=== PATIENT | female | born 1985 | race American Indian/Alaskan Native ===

== ENCOUNTER 2016-05-31 12:33 | Emergency (ER) | payer MEDICAID ==
[2016-05-31 12:51] VITALS: BP 128/90
--- NOTE | 2016-05-31 13:52 | Emergency Department Report ---
Chief Complaint: Abdominal Pain Stated Complaint: SHINGLES/PAIN Time Seen by Provider: 05/31/16 13:47 - HPI History of Present Illness: 30-year-old female with a past medical history of HIV. She reports that she has been dealing with a bout of zoster. She is now complaining of pain in her upper left side of her back. Her zoster outbreak was on her left lower back and side. Patient feels that there is some swelling up top. She denies any fever or chills denies any vaginal discharge vomiting nausea. She states Tylenol 3 without any resolution of pain - Exam Vital Signs: Vital Signs 05/31/16 12:48 Temperature 97.7 F Pulse Rate 80 Respiratory 16 Rate Blood Pressure 128/90 O2 Sat by Pulse 100 Oximetry Physical Exam: He is alert and oriented 3. Cardiovascular S1-S2 regular rate and rhythm respiratory clear to bilateral bacl left side tenderness to light and deep palpation MSE screening note: Focused history and physical exam performed. Due to findings the following was ordered: cbc, bmp will been seen in the main ER ED Disposition for MSE Condition: Stable Instructions: Abdominal Pain (ED)
[2016-05-31 14:22] LABS: Hematocrit 40.2 % (30.3-42.9); Hemoglobin 13.3 gm/dl (10.1-14.3); Mean Corpuscular HGB Conc 33 % (30-34); Mean Corpuscular Hemoglobin 31 pg (28-32); Mean Corpuscular Volume 94 fl (79-97); Platelet Count 324 K/mm3 (140-440); Red Blood Count 4.28 M/mm3 (3.65-5.03); Red Cell Distribution Width 13.3 % (13.2-15.2); White Blood Count 8.9 K/mm3 (4.5-11.0)
[2016-05-31 14:42] LABS: BUN/Creatinine Ratio 16.66; Blood Urea Nitrogen 10 mg/dL (7-17); Calcium 9.3 mg/dL (8.4-10.2); Carbon Dioxide 26 mmol/L (22-30); Glucose 87 mg/dL (65-100)
[2016-05-31 14:43] LABS: Chloride 98.2 mmol/L (98-107); Potassium 4.2 mmol/L (3.6-5.0); Sodium 137 mmol/L (137-145)
[2016-05-31 14:52] LABS: Anion Gap 17 mmol/L
[2016-05-31 16:15] LABS: Bilirubin,Urine NEG (Negative); Blood,Urine LG (Negative); Ketones,Urine NEG (Negative); Leukocyte Esterase,Urine SM (Negative); Mucus,Urine FEW /HPF; Nitrite,Urine NEG (Negative); Protein,Urine <15 mg/dL mg/dL (Negative); Urobilinogen,Urine < 2.0 mg/dL (<2.0)
--- NOTE | 2016-06-04 05:11 | ED Elopement Review ---
ED Pt Elopement review - Results review Lab results: Laboratory Tests 05/31/16 05/31/16 05/31/16 14:08 14:08 15:40 WBC 8.9 RBC 4.28 Hgb 13.3 Hct 40.2 MCV 94 MCH 31 MCHC 33 RDW 13.3 Plt Count 324 Sodium 137 Potassium 4.2 Chloride 98.2 Carbon Dioxide 26 Anion Gap 17 BUN 10 Creatinine 0.6 L Estimated GFR > 60 BUN/Creatinine Ratio 16.66 Glucose 87 Calcium 9.3 Urine Color Yellow Urine Turbidity Clear Urine pH 6.0 Ur Specific [place] 1.014 Urine Protein <15 mg/dl Urine Glucose (UA) Neg Urine Ketones Neg Urine Blood Lg Urine Nitrite Neg Urine Bilirubin Neg Urine Urobilinogen < 2.0 Ur Leukocyte Esterase Sm Urine WBC (Auto) 6.0 Urine RBC (Auto) 3.0 U Epithel Cells (Auto) 16.0 H Urine Mucus Few Urine HCG, Qual Negative - Call Back decision Pt Call Back Decision: No action required
== END 2016-05-31 23:18 | disposition left against medical advice (07) ==
LOC: ED 12:33
DX: M54.6 Pain in thoracic spine (principal); B02.9 Zoster without complications; Z53.21 Procedure and treatment not carried out due to patient leaving prior to being seen by health care provider
CPT/HCPCS: 36415; 80048; 81001; 81025; 85027

== ENCOUNTER 2019-03-29 09:40 | Inpatient (IN) | payer BC, MEDICAID ==
[2019-03-29] MEDS ORDERED: METOCLOPRAMIDE 10 MG/2 ML INJ IV NR (10:30)
[2019-03-29] MEDS ORDERED: ceFAZolin/Water 2 GM/20 ML 2 GM/20 ML SYRINGE IV NR (10:30)
[2019-03-29] MEDS ORDERED: FAMOTIDINE 20 MG/2 ML INJ IV NR (10:30)
[2019-03-29] MEDS ORDERED: BICITRA ORAL LIQD 30ML PO NR (10:30)
[2019-03-29] MEDS ORDERED: WATER IV ONE (11:00)
[2019-03-29] MEDS ORDERED: DEXTROSE 5% IV ONE (11:00)
[2019-03-29] MEDS ORDERED: LACTATED RINGERS 1,000 ML IV SCH (11:00)
[2019-03-29] MEDS ORDERED: OXYTOCIN 20 UNIT/1000ML DRIP 20 UNITS/1,000 ML BAG IV SCH ×2 (11:00→20:00)
[2019-03-29] MEDS ORDERED: ZIDOVUDINE IV ONE (11:00)
[2019-03-29 11:18] LABS: Basophils % (Auto) 0.8 % (0.0-1.8); Eosinophils % (Auto) 0.2 % (0.0-4.3); Hematocrit 30.4 % (30.3-42.9); Lymphocytes # (Auto) 2.5 K/mm3 (1.2-5.4); Lymphocytes % (Auto) 43.1 % (13.4-35.0); Mean Corpuscular HGB Conc 33 % (30-34); Mean Corpuscular Volume 87 fl (79-97); Monocytes # (Auto) 0.3 K/mm3 (0.0-0.8); Monocytes % (Auto) 4.9 % (0.0-7.3); Platelet Count 251 K/mm3 (140-440); Red Blood Count 3.51 M/mm3 (3.65-5.03); Red Cell Distribution Width 14.8 % (13.2-15.2)
--- NOTE | 2019-03-29 11:21 | Anesthesia Day of Surgery ---
Anesthesia Day of Surgery - Day of Surgery Patient Examined: Yes Patient H&P Reviewed: Yes Patient is NPO: Yes
--- NOTE | 2019-03-29 11:21 | Anesthesia Consultation ---
Anesthesia Consult and Med Hx Date of service: 03/29/19 - Airway Anesthetic Teeth Evaluation: Good ROM Head & Neck: Adequate Mental/Hyoid Distance: Adequate Mallampati Class: Class II Intubation Access Assessment: Probably Good - Pulmonary Exam CTA: Yes - Cardiac Exam Cardiac Exam: RRR - Pre-Operative Health Status ASA Pre-Surgery Classification: ASA3 Proposed Anesthetic Plan: Spinal - Pulmonary Hx Asthma: Yes (no meds at this time) COPD: No Hx Pneumonia: No - Cardiovascular System Hx Hypertension: No - Central Nervous System Hx Seizures: No Hx Psychiatric Problems: No - Endocrine Hx Renal Disease: No Hx End Stage Renal Disease: No Hx Hypothyroidism: No Hx Hyperthyroidism: No - Hematic Hx Anemia: Yes (no meds at this time) Hx Sickle Cell Disease: No - Other Systems Hx Alcohol Use: No - Additional Comments Anesthesia Medical History Comments: HIV +
[2019-03-29] MEDS ORDERED: ZIDOVUDINE 400 MG in DEXTROSE 5% IN WATER 160 ML IV SCH (12:00)
--- NOTE | 2019-03-29 17:48 | History and Physical Report ---
History of Present Illness Date of examination: 03/29/19 Date of admission: 03/29/19 09:40 Chief complaint: scheduled delivery History of present illness: 33y/o @ 38+0 weeks presents for a primary delivery secondary to +HIV status and viral load >1000. The patient initiated care @ 12 weeks ega. 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 She denies any recent prodrome. The patient has received anti-retrovirals during the . She denies leakage of fluid or vaginal bleeding. 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 Social history: single - Obstetrical History Expected Date of Delivery: 04/12/19 Actual Gestation: 38 Week(s) 0 Day(s) : 5 Para: 2 Hx # Term Pregnancies: 2 Number of Pregnancies: 0 Spontaneous Abortions: 1 Induced : 1 Number of Living Children: 2 Medications and Allergies Allergies Allergy/AdvReac Type Severity Reaction Status Date / Time No Known Allergies Allergy Verified 07/25/13 22:46 Home Medications Medication Instructions Recorded Confirmed Last Taken Type Darunavir Ethanolate [Prezista] 75 mg PO QDAY 01/29/13 07/26/13 03/13/19 09:00 History Emtricitabin/Tenofovir [TRUVADA 1 tab PO QDAY 01/29/13 07/26/13 03/13/19 09:00 History 200-300 mg] Ritonavir [Norvir] 100 mg PO QDAY 01/29/13 03/29/19 03/06/19 09:00 History Ibuprofen [Motrin] 800 mg PO Q8HR PRN #60 tablet 03/29/19 Unknown Rx oxyCODONE /ACETAMINOPHEN [Percocet 1 tab PO Q6HR PRN #30 tablet 03/29/19 Unknown Rx 5/325] Active Meds: Active Medications Oxytocin/Sodium Chloride (Pitocin/Ns 20 Unit/1000ml Drip) 20 units in 1,000 mls @ 0 mls/hr IV TITR ELKE Lactated Ringer's (Lactated Ringers) 1,000 mls @ 2,250 mls/hr IV PREOP ELKE Stop: 03/30/19 11:27 Last Admin: 03/29/19 16:39 Dose: 2,250 mls/hr Documented by: Zidovudine 400 mg/ Dextrose 200 mls @ 49.895 mls/hr IV DIRECT ELKE Last Admin: 03/29/19 12:16 Dose: 1 mg/kg/hr, 49.895 mls/hr Documented by: Review of Systems All systems: negative Genitourinary: no vaginal bleeding, no leakage of fluid, no contractions - Vital Signs Vital signs: Vital Signs Pulse BP 89 114/73 03/29/19 10:22 03/29/19 10:22 Temp Pulse Resp BP Pulse Ox 98.0 F 89 114/73 98 03/29/19 10:52 03/29/19 11:28 03/29/19 10:22 03/29/19 11:28 - Physical Exam Breasts: Positive: deferred Cardiovascular: Regular rate Lungs: Positive: Clear to auscultation Abdomen: Positive: normal appearance Results Result Diagrams: 03/29/19 10:45 Abnormal lab results 03/29/19 Range/Units 10:45 RBC 3.51 L (3.65-5.03) M/mm3 Hgb 10.0 L (10.1-14.3) gm/dl Lymph % (Auto) 43.1 H (13.4-35.0) % All other labs normal. Assessment and Plan - Patient Problems (1) HIV (human immunodeficiency virus) risk factors complicating Current Visit: No Status: Acute Plan to address problem: will proceed with a scheduled delivery and BTL ZDV administered preoperatively
[2019-03-29] MEDS ORDERED: SODIUM CHLORIDE 0.9% IRR 1,500 ML BOTTLE IR ONE (19:20)
[2019-03-29] MEDS ORDERED: WATER FOR IRRIG STERILE 1,500 ML BOTTLE IR ONE (19:20)
[2019-03-29] MEDS ORDERED: MORPHINE 4 MG/1 ML INJ IV PRN (19:43)
[2019-03-29] MEDS ORDERED: IBUPROFEN 800 MG TAB PO PRN (19:43)
[2019-03-29] MEDS ORDERED: WITCH HAZEL/ GLYCERIN PAD TP PRN (19:43)
[2019-03-29] MEDS ORDERED: ACETAMINOPHEN 325 MG TAB PO PRN (19:43)
[2019-03-29] MEDS ORDERED: KETOROLAC 30 MG/1 ML INJ IV PRN (19:43)
[2019-03-29] MEDS ORDERED: LANOLIN/ZINC/DIMETHICONE (LANSINOH) 7 GM TP PRN (19:43)
[2019-03-29] MEDS ORDERED: NALOXONE 0.4 MG/1 ML INJ IV PRN ×2 (19:43→20:52)
[2019-03-29] MEDS ORDERED: ONDANSETRON 4 MG/2 ML INJ IV PRN ×2 (19:43→20:52)
--- NOTE | 2019-03-29 19:43 | Procedure Note ---
OB Delivery Note - Delivery Date of Delivery: 03/29/19 Surgeon: GUERITA BRICEÑO Estimated blood loss: 1000cc - Section Preop diagnosis: other (+HIV status) Postop diagnosis: same section procedure: section, primary low transverse Disposition: PACU Complications: none - Infant A at 1 minute: 8 at 5 minutes: 9 Gender: Male (weight 7lbs 14oz)
[2019-03-29] MEDS ORDERED: DEXMEDETOMIDINE 200 MCG/2 ML VIAL IV ONE (20:01)
[2019-03-29] MEDS ORDERED: OXYTOCIN 10 UNIT/1 ML INJ ONE (20:01)
[2019-03-29] MEDS ORDERED: BUPIVACAINE/PF (0.5%) 5 MG/1 ML 30 ML VIAL INFILTRATI ONE (20:01)
--- NOTE | 2019-03-29 20:51 | Post Anesthesia Evaluation ---
- Post Anesthesia Evaluation Patient Participated: Yes Airway Patent: Yes Stable Respiratory Function: Yes Nausea/Vomiting: No Temp > 96.8F: Yes Pain Manageable: Yes Adequeate Hydration: Yes Anesthesia Complications: No Block Receding Appropriately: Yes
[2019-03-29] MEDS ORDERED: NalbUPHINE 10 MG/1 ML INJ IV PRN (20:52)
[2019-03-29] MEDS ORDERED: PROMETHAZINE 25 MG RECT SUPP PR PRN (20:52)
[2019-03-29] MEDS ORDERED: PROMETHAZINE 25 MG TAB PO PRN (20:52)
--- NOTE | 2019-03-29 20:53 | Operative Report ---
Operative Report Operative Report: Date of surgery: 03/29/2019 Preoperative diagnosis: at 38+0 weeks;+HIV status; Viral load >1000; Unwanted fertility Postoperative diagnosis: Same as above Procedure: Primary low transverse delivery and bilateral tubal ligation via Cygnet method Surgeon: Dian Roth M.D. Anesthesia: Regional Estimated blood loss: 1000 mL IV fluids: 1 L Output: 100 mL Pathology: Portion of left and right fallopian tube Findings: Liveborn male with Apgars of 8 and 9 weight 7 lbs. 14 oz. Indications: 33-year-old at 38+0 weeks who presents for scheduled primary delivery secondary to positive HIV status. The patient has undesired fertility Pete undergo permanent sterilization. Procedure: The patient was taken to the operating room and given regional anesthesia without complication. She was prepped and draped in a normal sterile fashion. A Pfannenstiel skin incision was made down to layer the fascia which was nicked in the midline extended laterally with the Bovie cautery. The superior aspect of the rectus fascia was grasped with Caldwell clamps x2 and the rectus muscles off sharply. This was done in inferior fashion as well. The rectus muscle midline and peritoneum entered bluntly. An Pete retractor was then inserted. A bladder blade was placed. The vesicouterine peritoneum was then entered sharply with Metzenbaum scissors. A bladder flap was created digitally. A low transverse uterine incision was then made and extended digitally. There was clear fluid upon entry into the uterine cavity. The head was delivered through the incision with fundal pressure. The cord was clamped and cut x2 and was passed off to pediatrics. The placenta was then manually extracted. The uterus was then exteriorized and cleared of clots and debris. The uterine incision was then closed in a running locked fashion with 0 Vicryl additional imbricating stitch was applied for 2 layer closure. Attention was then turned to the patient's fallopian tube where the right fallopian tube was followed out to the fimbriated end. Sterling was placed on the fallopian tube. A window was created in the mesosalpinx with the Bovie cautery. The distal and proximal area of the ampullary tube were ligated 2 with oh plain gut. A 1 cm portion of tube was then excised. This was performed on the contralateral side as well. The posterior cul-de-sac was then copiously irrigated. The uterus was replaced back into the abdomen and pelvis were the gutters were then irrigated. The Pete retractor was then removed. The peritoneum was then reapproximated with 3-0 Vicryl incorporating the rectus muscle. The fascia was then closed with 0 Vicryl in a running fashion. The skin was then reapproximated with 3-0 Monocryl on a Lucas needle subcuticular fashion. Steri-Strips to place across the incision and a Crede procedures performed at the end of the surgery. A pressure dressing was applied to the incision. The surgery productive of a liveborn male with Apgars of 8 and 9 weight 7 lbs. 14 oz. The patient was taken to the recovery room in stable condition. All sponge laps and needle counts correct x2.
[2019-03-29] MEDS: IBUPROFEN 800 MG TAB PO SCH (21:00)
[2019-03-29] MEDS: ACETAMINOPHEN 500 MG TAB PO SCH (21:00)
[2019-03-30] MEDS: ACETAMINOPHEN 500 MG TAB PO SCH (03:29)
[2019-03-30] MEDS ORDERED: D5W/LACTATED RINGERS 1,000 ML IV SCH (04:00)
[2019-03-30] MEDS: IBUPROFEN 800 MG TAB PO SCH ×2 (05:00→13:42)
[2019-03-30 08:31] LABS: Hematocrit 26.2 % (30.3-42.9); Hemoglobin 8.7 gm/dl (10.1-14.3)
[2019-03-30] MEDS: DARUNAVIR 800 MG TAB PO SCH (09:05)
[2019-03-30] MEDS: oxyCODONE /ACETAMINOPHEN 5-325MG TAB PO PRN ×2 (09:05→19:35)
[2019-03-30] MEDS: TENOFOVIR 300 MG TAB PO SCH (09:06)
[2019-03-30] MEDS: RITONAVIR 100 MG TAB PO SCH (09:07)
--- NOTE | 2019-03-30 10:16 | Progress Note ---
Assessment and Plan POD1 s/p LTCS with bilateral tubal ligation HIV positive- continue ART Needs abdominal binder Acute on chronic anemia- iron supplementation Anticipate d/c to home on POD3 Subjective - Subjective Date of service: 03/30/19 Principal diagnosis: s/p LTCS Interval history: Pt is POD1 s/p with tubal ligation Patient reports: appetite normal, voiding normally, pain well controlled, flatus, ambulating normally [place]: doing well, bottle feeding Objective - Vital Signs Latest vital signs: Vital Signs Temp Pulse Resp BP Pulse Ox 03/30/19 08:21 98.1 F 72 20 110/77 98 03/30/19 05:53 97.8 F 73 20 106/71 98 03/30/19 03:29 18 03/30/19 01:45 97.5 F L 67 18 110/72 97 03/30/19 01:25 18 03/29/19 22:18 97.3 F L 71 18 112/63 96 03/29/19 21:50 70 15 108/62 03/29/19 21:49 106 H 117/76 03/29/19 21:35 74 17 103/61 03/29/19 21:20 72 16 107/63 03/29/19 21:05 72 17 105/62 03/29/19 21:00 73 18 110/61 03/29/19 20:55 62 19 122/68 03/29/19 20:52 106 H 98 03/29/19 20:50 97.8 F 76 18 103/43 03/29/19 20:47 111 H 98 03/29/19 20:43 118 H 114/77 03/29/19 20:42 108 H 98 03/29/19 20:37 109 H 98 03/29/19 20:32 106 H 98 03/29/19 20:27 238 H 97 03/29/19 11:28 89 98 03/29/19 11:23 79 95 03/29/19 11:18 78 99 03/29/19 11:13 90 97 03/29/19 11:08 82 98 03/29/19 11:03 79 98 03/29/19 10:58 85 99 03/29/19 10:53 84 98 03/29/19 10:52 98.0 F 03/29/19 10:48 82 95 03/29/19 10:43 77 95 03/29/19 10:38 85 96 03/29/19 10:33 88 95 03/29/19 10:28 92 H 95 03/29/19 10:23 90 96 03/29/19 10:22 89 114/73 Intake and Output 03/29/19 03/30/19 03/30/19 23:59 07:59 15:59 Intake Total 2500 360 Output Total 250 500 Balance 2250 -140 Intake: IV 2500 Left Medial Port Wrist 1000 Intake, Free Water 360 Output: Urine 250 500 Indwelling Catheter 500 Other: Total, Output Amount 500 Estimated Blood Loss 1,000 - Exam Lungs: Present: Normal air movement Abdomen: Present: normal appearance, soft Uterus: Present: normal, firm, fundal height below umbilicus Extremities: Present: normal Incision: Present: dressed - Labs Labs: Abnormal lab results 03/29/19 03/30/19 Range/Units 10:45 07:51 RBC 3.51 L (3.65-5.03) M/mm3 Hgb 10.0 L 8.7 L (10.1-14.3) gm/dl Hct 26.2 L (30.3-42.9) % Lymph % (Auto) 43.1 H (13.4-35.0) %
[2019-03-30] MEDS: FERROUS SULFATE 325 MG TAB PO SCH (21:24)
[2019-03-31] MEDS: IBUPROFEN 800 MG TAB PO SCH ×3 (02:15→16:01)
[2019-03-31] MEDS: oxyCODONE /ACETAMINOPHEN 5-325MG TAB PO PRN ×3 (03:53→17:51)
--- NOTE | 2019-03-31 09:43 | Progress Note ---
Assessment and Plan POD2 s/p LTCS with bilateral tubal ligation HIV positive- continue ART Colace BID for hemorrhoid Acute on chronic anemia- iron supplementation Anticipate d/c to home on POD3 Subjective - Subjective Date of service: 03/31/19 Principal diagnosis: s/p LTCS Interval history: Pt is POD2 s/p with tubal ligation Patient reports: appetite normal, voiding normally, pain well controlled, flatus, ambulating normally, other (hemorrhoid) [place]: doing well, bottle feeding Objective - Vital Signs Latest vital signs: Vital Signs Temp Pulse Resp BP BP Pulse Ox 03/31/19 08:05 97.8 F 83 20 121/75 03/30/19 23:18 97.7 F 78 18 123/85 96 03/30/19 20:26 97.9 F 82 20 110/63 94 03/30/19 16:14 97.5 F L 77 20 115/78 100 03/30/19 12:23 97.8 F 72 16 103/72 95 Intake and Output 03/30/19 03/31/19 03/31/19 23:59 07:59 15:59 Intake Total 200 360 120 Output Total 450 Balance -250 360 120 Intake: Oral 200 120 Intake, Free Water 360 Output: Urine 450 Void 450 Other: Total, Intake Amount 200 120 Total, Output Amount 450 # Voids Void 3 1 - Exam Lungs: Present: Normal air movement Abdomen: Present: soft Uterus: Present: firm, fundal height at umbilicus Extremities: Present: normal Incision: Present: dressed
[2019-03-31] MEDS: FERROUS SULFATE 325 MG TAB PO SCH ×2 (10:08→21:59)
[2019-03-31] MEDS: DOCUSATE SODIUM 100 MG CAP PO SCH ×2 (10:08→22:00)
[2019-03-31] MEDS: RITONAVIR 100 MG TAB PO SCH (10:10)
[2019-03-31] MEDS: TENOFOVIR 300 MG TAB PO SCH (10:11)
[2019-03-31] MEDS: DARUNAVIR 800 MG TAB PO SCH (10:11)
[2019-03-31] MEDS: ACETAMINOPHEN 500 MG TAB PO SCH ×2 (10:15→17:51)
[2019-03-31] MEDS ORDERED: BENZOCAINE/MENTHOL 20/0.5% TOP SPRAY 56 GM TP PRN (14:52)
[2019-03-31] MEDS ORDERED: DOCUSATE SODIUM 100 MG/10 ML ORAL LIQD PO PRN (16:06)
[2019-04-01] MEDS: IBUPROFEN 800 MG TAB PO SCH (01:52)
--- NOTE | 2019-04-01 09:04 | Progress Note ---
Assessment and Plan A/P POD3 scheduled csec for HIV + >1000 viral load routine care d/c home with f/u in 2 weeks continue following HIV with consults Subjective - Subjective Date of service: 04/01/19 Principal diagnosis: s/p LTCS, HIV + Patient reports: appetite normal, voiding normally, pain well controlled, flatus, ambulating normally [place]: doing well Objective - Vital Signs Latest vital signs: Vital Signs Temp Pulse Resp BP BP Pulse Ox 03/31/19 23:10 98.1 F 82 20 104/58 97 03/31/19 15:55 97.8 F 64 20 111/71 Intake and Output 03/31/19 04/01/19 04/01/19 23:59 07:59 15:59 Intake Total 480 Balance 480 Intake: Oral 480 Other: Total, Intake Amount 240 # Voids Void 1 - Exam Breasts: Present: normal Cardiovascular: Present: Regular rate, Normal S1 Lungs: Present: Clear to auscultation, Normal air movement Abdomen: Present: normal appearance, soft, normal bowel sounds. Absent: distention, tenderness, guarding Vulva: both: normal Uterus: Present: normal, firm, fundal height below umbilicus. Absent: bogginess, tenderness Extremities: Present: normal Deep Tendon Reflex Grade: Normal +2 Incision: Present: normal, dry, intact
--- NOTE | 2019-04-01 09:05 | Discharge Summary ---
Providers - Providers Date of Admission: 03/29/19 09:40 Date of discharge: 04/01/19 Attending physician: GUERITA BRICEÑO Primary care physician: GUERITA BRICEÑO Hospitalization Reason for admission: section Procedure: section Episiotomy: none Laceration: none Incision: normal, dry, intact Other procedures: tubal ligation complications: none Discharge diagnosis: IUP at term delivered baby: male Hospital course: Routine scheduled csec for HIV. Did well pP. follow up in 2 weeks Condition at discharge: Good Disposition: DC-01 TO HOME OR SELFCARE Plan - Discharge Medications Prescriptions: Docusate Sodium [Colace] 100 mg PO BID PRN #60 capsule PRN Reason: Constipation Ferrous Sulfate [Feosol 325 MG tab] 325 mg PO BID #60 tablet Ibuprofen [Motrin] 800 mg PO Q8HR PRN #60 tablet PRN Reason: Pain, Mild (1-3) Ibuprofen [Motrin] 800 mg PO Q8HR PRN #60 tablet PRN Reason: Pain, Moderate (4-6) oxyCODONE /ACETAMINOPHEN [Percocet 5/325] 1 tab PO Q6HR PRN #30 tablet PRN Reason: Pain - Provider Discharge Summary Additional instructions: [] Smoking cessation referral if applicable(refer to patient education folder for contact #) [] Refer to [facility]'s [facility] Booklet Call your doctor immediately for: * Fever > 100.5 * Heavy vaginal bleeding ( >1 pad per hour) * Severe persistent headache * Shortness of breath * Reddened, hot, painful area to leg or breast * Drainage or odor from incision. * Keep incision clean and dry at all times and follow doctor's instructions regarding bathing/showering - Follow up plan Follow up: GUERITA BRICEÑO MD [Primary Care Provider] - 7 Days
[2019-04-01] MEDS: RITONAVIR 100 MG TAB PO SCH (10:47)
[2019-04-01] MEDS: DOCUSATE SODIUM 100 MG CAP PO SCH (10:47)
[2019-04-01] MEDS: FERROUS SULFATE 325 MG TAB PO SCH (10:47)
[2019-04-01] MEDS: DARUNAVIR 800 MG TAB PO SCH (10:48)
[2019-04-01] MEDS: TENOFOVIR 300 MG TAB PO SCH (10:48)
[2019-04-01] MEDS: oxyCODONE /ACETAMINOPHEN 5-325MG TAB PO PRN (10:49)
[2019-04-01 14:23] VITALS: BP 114/75
== END 2019-04-01 18:09 | disposition home or self-care (01) | DRG 784 ==
LOC: UNDOADMIN 09:40 → APU 09:40 → OB 22:12
PROVIDERS: ADMIT Obstetrics & Gynecology; ATTEND Obstetrics & Gynecology
PROC: 10D00Z1 Extraction of Products of Conception, Low, Open Approach (ICD-10-PCS; principal; 2019-03-29)
PROC: 0UB70ZZ Excision of Bilateral Fallopian Tubes, Open Approach (ICD-10-PCS; 2019-03-29)
DX: O98.72 Human immunodeficiency virus [HIV] disease complicating childbirth (principal); D62 Acute posthemorrhagic anemia; Z37.0 Single live birth; O99.52 Diseases of the respiratory system complicating childbirth; O99.02 Anemia complicating childbirth; D64.9 Anemia, unspecified; J45.909 Unspecified asthma, uncomplicated; Z3A.38 38 weeks gestation of pregnancy; Z21 Asymptomatic human immunodeficiency virus [HIV] infection status; Z30.2 Encounter for sterilization
CPT/HCPCS: 36415; 85014; 85018; 85025; 86592; 86850; 86900; 86901; 88302; G0378; J0690; J1885; J2405; J2590; J2765; J3485; J3490; J7120; J7121